=== PATIENT | female | born 1975 | race Caucasian/White ===

== ENCOUNTER 2018-08-15 18:19 | Observation (INO) | payer MEDICAID, SELFPAY ==
[2018-08-15] MEDS ORDERED: Sodium Chloride 0.9% 500 ML IV STA (19:14)
[2018-08-15] MEDS ORDERED: Albuterol 0.083% Inhal Sol (2.5 mg/3 mL) UD IH STA (19:15)
[2018-08-15 20:03] LABS: BASO # 0.01 K/mm3 (0.0-2.0); BASO % 0.1 % (0.0-3.0); EOS # 0.2 (0.0-0.7); EOS % 2.8 % (1.5-5.0); GRAN # 5.65 (1.4-6.5); LYMPH # 1.6 (1.2-3.4); LYMPH % 19.8 % (22.0-35.0); MEAN CELL VOLUME 86.7 fl (80.0-105.0); MEAN CORPUSCULAR HEMOGLOBIN 29.6 pg (25.0-35.0); MEAN CORPUSCULAR HGB CONC 34.2 g/dl (31.0-37.0); MEAN PLATELET VOLUME 8.7 fl (7.0-11.0); MONO # 0.7 (0.1-0.6); MONO % 8.3 % (1.0-6.0); RBC 5.4 10^6/uL (3.5-6.1); RED CELL DISTRIBUTION WIDTH 12.6 % (11.5-14.5); WHITE BLOOD COUNT 8.2 10^3/uL (4.5-11.0)
[2018-08-15 20:05] LABS: ALBUMIN 4.4 g/dL (3.0-4.8); BLOOD UREA NITROGEN 20 mg/dL (7-21); GFR NON-AFRICAN AMERICAN > 60
[2018-08-15 20:27] LABS: ALT/SGPT 30 U/L (7-56); AST/SGOT 41 U/L (14-36)
--- NOTE | 2018-08-15 21:46 | ED PDOC ---
Arrival/HPI - General Historian: Patient - History of Present Illness Narrative History of Present Illness (Text): Haroon Brito is a 42 year old female who presents to the ED complaining of cough, nasal congestion, and sore throat which started yesterday. Patient states she feels like she is having trouble breathing and notes she had a similar event happen last year around the same time. Patient denies any chest pain. Patient also complaining of fever at home, states she took spxa-efi-mxwjewx cold and cough medicine. Patient also complaining of headache, but denies any taking any medication for pain. Patient also denies nay nausea, vomiting, diarrhea, dizziness, extremity pain, or any other complaints. Symptom Onset: Gradual Symptom Course: Unchanged Activities at Onset: Light Context: Home <Sanjuanita Joshi - Last Filed: 08/16/18 02:10> <Beka Anaya - Last Filed: 08/17/18 17:43> - General Chief Complaint: Flu-like Symptoms Time Seen by Provider: 08/15/18 18:49 Past Medical History - Provider Review Nursing Documentation Reviewed: Yes - Travel History Have you recently traveled outside [place] w/in the past 3 mons?: No - Infectious Disease Hx of Infectious Diseases: None - Psychiatric Hx Substance Use: No - Anesthesia Hx Anesthesia: No <Sanjuanita Joshi - Last Filed: 08/16/18 02:10> Family/Social History - Physician Review Nursing Documentation Reviewed: Yes Family/Social History: Unknown Family HX Smoking Status: Never Smoked Hx Alcohol Use: No Hx Substance Use: No <Sanjuanita Joshi - Last Filed: 08/16/18 02:10> Allergies/Home Meds <Sanjuanita Joshi - Last Filed: 08/16/18 02:10> <Beka Anaya - Last Filed: 08/17/18 17:43> Allergies/Adverse Reactions: Allergies No Known Allergies Allergy (Verified 08/15/18 19:13) Review of Systems - Physician Review All systems were reviewed & negative as marked: Yes - Review of Systems Constitutional: Fevers. absent: Fatigue ENT: Sore Throat, Sinus Congestion, Other Respiratory: SOB, Cough. absent: Wheezing Cardiovascular: absent: Chest Pain, Palpitations Gastrointestinal: absent: Abdominal Pain, Diarrhea, Nausea, Vomiting Genitourinary Female: absent: Dysuria, Frequency Musculoskeletal: absent: Arthralgias, Back Pain Skin: absent: Rash Neurological: Headache. absent: Dizziness Psychiatric: absent: Anxiety, Depression <Sanjuanita Joshi T - Last Filed: 08/16/18 02:10> Physical Exam Vital Signs Reviewed: Yes Vital Signs Temp Pulse Resp BP Pulse Ox 08/15/18 21:25 99.7 F H 111 H 20 145/89 95 08/15/18 18:19 99.8 F H 122 H 20 131/82 95 Temperature: Febrile Blood Pressure: Normal Pulse: Tachycardic Respiratory Rate: Normal Appearance: Positive for: Well-Appearing, Non-Toxic, Comfortable Pain Distress: None Mental Status: Positive for: Alert and Oriented X 3 - Systems Exam Head: Present: Atraumatic, Normocephalic Conjunctiva: Present: Normal Ears: Present: Other (TMS obstructed by cerumen bilaterally) Mouth: Present: Moist Mucous Membranes Pharnyx: Present: Other (Post-nasal drip noted). No: ERYTHEMA, EXUDATE, TONSILS ENLARGED, Peritonsilar Swelling, Uvular Deviation, Muffled/Hoarse Voice, Strider, Soft Palate/Uvular Edema Nose (External): Present: Atraumatic Nose (Internal): Present: Normal Inspection Neck: Present: Normal Range of Motion. No: Meningeal Signs, MIDLINE TENDERNESS, Paraspinal Tenderness Respiratory/Chest: Present: Clear to Auscultation, Good Air Exchange. No: Respiratory Distress, Accessory Muscle Use, Wheezes, Decreased Breath Sounds, Retracting, Rhonchi, Tachypneic, Tender to Palpation Cardiovascular: Present: Regular Rate and Rhythm, Normal S1, S2. No: Murmurs Abdomen: No: Tenderness, Distention, Peritoneal Signs Back: Present: Normal Inspection Upper Extremity: Present: Normal Inspection. No: Cyanosis, Edema Lower Extremity: Present: Normal Inspection. No: Edema Neurological: Present: GCS=15, Speech Normal Skin: Present: Warm, Dry, Normal Color. No: Rashes Psychiatric: Present: Alert, Oriented x 3 <Sanjuanita Joshi T - Last Filed: 08/16/18 02:10> Vital Signs Temp Pulse Resp BP Pulse Ox 08/15/18 21:25 99.7 F H 111 H 20 145/89 95 08/15/18 20:29 99.7 F H 11/19/18 18:19 99.8 F H 122 H 20 131/82 95 <Beka Anaya - Last Filed: 08/17/18 17:43> Medical Decision Making ED Course and Treatment: Impression: 42 year old female complaining of fever, cough, nasal congestion, sore throat, and headache. Plan: -- Chest X-ray -- Labs, rapid influenza -- Tylenol -- Albuterol -- IV fluids -- Reassess and disposition Progress Notes: Patient was given Tylenol albuterol and IV fluids Chest x-ray shows no infiltrate or effusion. CBC within normal limits CMP within normal limits patient reassessment: lungs are clear to auscultation bilaterally patient is feeling better. Patient remains tachycardic and hypoxic. pt given toradol IV and 1L NS iv bolus added. CT Angio chest; COMMENTS: There is a dense left lower lobe consolidation consistent with pneumonia. Pulmonary edema is seen. There is bright opacification of the aorta and pulmonary arterial structures. The aorta is normal caliber and there is no dissection of the intima. No defect is seen in the pulmonary arteries to suggest pulmonary embolus. The lungs are fully expanded and there is no consolidation or mass. Heart is jxwjxnjnsf-zr-pqlsxhxw enlarged. There are pulmonary venous congestive changes present. There are no enlarged mediastinal or hilar lymph nodes. Small hiatal hernia is seen. The visualized portions of the liver are of uniform attenuation without mass or defect. There is no intra or extrahepatic biliary ductal dilatation. The spleen is unremarkable. The visualized pancreas is of normal contour and attenuation characteristics. There is no evidence of adrenal mass. The visualized portions of the kidneys present no abnormalities. There is a 2.4 x 1.5 cm right adrenal mass present containing fatty elements as well as calcifications and low-attenuation soft tissue component. This is consistent with right adrenal myelolipoma, a benign lesion. The bony structures appear intact. IMPRESSION: 1. No evidence of pulmonary embolism. 2. Dense left lower lobe consolidation consistent with pneumonia. 3. Pulmonary edema. 4. Cfvszmowwu-fg-xnlilalh enlarged heart with pulmonary venous congestive changes present. 5. Small hiatal hernia. blood cultures pending pt started on rocephin and zithromax IV. pt reassessment; pt remains slightly hypoxic. tachycardia has improved. case discussedwith Dr. huertas; excepts observational status admission to remote telemetry for pneumonia and hypoxia tachycardia cardiomegaly all results were discussed in depth with the patient. impression: Pneumonia, hypoxia, tachycardia, cardiomegaly Admit remote telemetry - Lab Interpretations Lab Results: 08/15/18 19:52 08/15/18 19:52 Lab Results 08/15/18 19:55: Influenza Typ A,B (EIA) Negative for flu a/b 08/15/18 19:52: WBC 8.2, RBC 5.40, Hgb 16.0, Hct 46.8, MCV 86.7, MCH 29.6, MCHC 34.2, RDW 12.6, Plt Count 255, MPV 8.7, Gran % 69.0 H, Lymph % (Auto) 19.8 L, [place] % (Auto) 8.3 H, Eos % (Auto) 2.8, Baso % (Auto) 0.1, Gran # 5.65, Lymph # (Auto) 1.6, [place] # (Auto) 0.7 H, Eos # (Auto) 0.2, Baso # (Auto) 0.01 08/15/18 19:52: Sodium 139, Potassium 4.4, Chloride 103, Carbon Dioxide 25, Anion Gap 16, BUN 20, Creatinine 0.9, Est GFR ( Amer) > 60, Est GFR (Non- Af Amer) > 60, Random Glucose 122 H, Calcium 9.0, Total Bilirubin 0.9, AST 41 H, ALT 30, Alkaline Phosphatase 93, Total Protein 8.8 H, Albumin 4.4, Globulin 4.4, Albumin/Globulin Ratio 1.0 L - RAD Interpretation Radiology Orders: 08/15/18 19:14 CHEST TWO VIEWS (PA/LAT) [RAD] Stat - Medication Orders Current Medication Orders: Discontinued Medications Acetaminophen (Tylenol 325mg Tab) 975 mg PO STAT STA Stop: 08/15/18 19:15 Last Admin: 08/15/18 19:29 Dose: 975 mg Albuterol Sulfate (Albuterol 0.083% Inhal Olive (2.5 Mg/3 Ml) Ud) 2.5 mg IH STAT STA Stop: 08/15/18 19:16 Last Admin: 08/15/18 19:29 Dose: 2.5 mg Sodium Chloride (Sodium Chloride 0.9%) 500 mls @ 999 mls/hr IV .Q31M STA Stop: 08/15/18 19:44 Last Admin: 08/15/18 19:29 Dose: 999 mls/hr eMAR Start Stop Document 08/15/18 19:29 OCS (Rec: 08/15/18 19:29 OCS [id number]) Intravenous Solution Start Date 08/15/18 Start Time 19:29 End Date 08/15/18 End time 19:59 Total Infusion Time 30 <Sanjuanita Joshi - Last Filed: 08/16/18 02:10> - Lab Interpretations Lab Results: 08/15/18 19:52 08/15/18 19:52 Lab Results 08/15/18 19:55: Influenza Typ A,B (EIA) Negative for flu a/b 08/15/18 19:52: WBC 8.2, RBC 5.40, Hgb 16.0, Hct 46.8, MCV 86.7, MCH 29.6, MCHC 34.2, RDW 12.6, Plt Count 255, MPV 8.7, Gran % 69.0 H, Lymph % (Auto) 19.8 L, [place] % (Auto) 8.3 H, Eos % (Auto) 2.8, Baso % (Auto) 0.1, Gran # 5.65, Lymph # (Auto) 1.6, [place] # (Auto) 0.7 H, Eos # (Auto) 0.2, Baso # (Auto) 0.01 08/15/18 19:52: Sodium 139, Potassium 4.4, Chloride 103, Carbon Dioxide 25, Anion Gap 16, BUN 20, Creatinine 0.9, Est GFR ( Amer) > 60, Est GFR (Non- Af Amer) > 60, Random Glucose 122 H, Calcium 9.0, Total Bilirubin 0.9, AST 41 H, ALT 30, Alkaline Phosphatase 93, Total Protein 8.8 H, Albumin 4.4, Globulin 4.4, Albumin/Globulin Ratio 1.0 L - RAD Interpretation Radiology Orders: 08/15/18 19:14 CHEST TWO VIEWS (PA/LAT) [RAD] Stat 08/15/18 22:04 ANGIO CHEST PE PROTOCOL [CT] Stat - Medication Orders Current Medication Orders: Discontinued Medications Acetaminophen (Tylenol 325mg Tab) 975 mg PO STAT STA Stop: 08/15/18 19:15 Last Admin: 08/15/18 19:29 Dose: 975 mg Re-Assess: MAR Pain/Vitals Document 08/15/18 20:29 OCS (Rec: 08/15/18 22:46 OCS [id number]) Vitals Temperature (97.6 F-99.6 F) 99.7 F Temperature Source Oral Albuterol Sulfate (Albuterol 0.083% Inhal Olive (2.5 Mg/3 Ml) Ud) 2.5 mg IH STAT STA Stop: 08/15/18 19:16 Last Admin: 08/15/18 19:29 Dose: 2.5 mg Sodium Chloride (Sodium Chloride 0.9%) 500 mls @ 999 mls/hr IV .Q31M STA Stop: 08/15/18 19:44 Last Admin: 08/15/18 19:29 Dose: 999 mls/hr eMAR Start Stop Document 08/15/18 19:29 OCS (Rec: 08/15/18 19:29 OCS [id number]) Intravenous Solution Start Date 08/15/18 Start Time 19:29 End Date 08/15/18 End time 19:59 Total Infusion Time 30 Sodium Chloride (Sodium Chloride 0.9%) 1,000 mls @ 999 mls/hr IV .Q1H1M STA Stop: 08/15/18 23:02 Last Admin: 08/15/18 22:37 Dose: 999 mls/hr eMAR Start Stop Document 08/15/18 22:37 OCS (Rec: 08/15/18 22:38 OCS [id number]) Intravenous Solution Start Date 08/15/18 Start Time 22:37 End Date 08/15/18 End time 23:38 Total Infusion Time 61 Ketorolac Tromethamine (Toradol) 30 mg IVP STAT STA Stop: 08/15/18 22:03 Last Admin: 08/15/18 22:38 Dose: 30 mg MAR Pain Assessment Document 08/15/18 22:38 OCS (Rec: 08/15/18 22:38 [id number] Pain Reassessment Is this a pain reassessment? Yes Sleep Is patient sleeping during reassessment? No Presence of Pain Presence of Pain Yes Pain Scale Used Protocol: PSCALES Pain Scale Used Numeric Location Pain Location Body Site Generalized Description Description Constant Aggravating Factors ADL's IVP Administration Document 08/15/18 22:38 OCS (Rec: 08/15/18 22:38 [facility] [id number]) Charges for Administration # of IVP Administrations 1 <Beka Anaya - Last Filed: 08/17/18 17:43> - Scribe Statement The provider has reviewed the documentation as recorded by the Scribe Raissa Rivera Provider Scribe Attestation: All medical record entries made by the Scribe were at my direction and personally dictated by me. I have reviewed the chart and agree that the record accurately reflects my personal performance of the history, physical exam, medical decision making, and the department course for this patient. I have also personally directed, reviewed, and agree with the discharge instructions and disposition. <Sanjuanita Joshi - Last Filed: 08/16/18 02:10> - PA / LEAD PROGRAMMER / Resident Statement / has reviewed & agrees with the documentation as recorded. / has examined the patient and agrees with the treatment plan. <Beka Anaya - Last Filed: 08/17/18 17:43> Disposition/Present on Arrival - Present on Arrival Any Indicators Present on Arrival: No History of DVT/PE: No History of Uncontrolled Diabetes: No Urinary Catheter: No History of Decub. Ulcer: No History Surgical Site Infection Following: None - Disposition Have Diagnosis and Disposition been Completed?: Yes Disposition Time: 00:01 Patient Plan: Observation <Sanjuanita Joshi - Last Filed: 08/16/18 02:10> <Beka Anaya - Last Filed: 08/17/18 17:43> - Disposition Diagnosis: Pneumonia, Tachycardia, Hypoxia, Cardiomegaly Disposition: HOSPITALIZED Condition: FAIR
[2018-08-15] MEDS ORDERED: Sodium Chloride 0.9% 1,000 ML IV STA (22:02)
[2018-08-15] MEDS ORDERED: Iohexol 350 MG/100 ML VIAL ONE (22:22)
[2018-08-16] MEDS ORDERED: cefTRIAXone 1 gm 1 GM/100 ML BAG IVPB STA (00:07)
[2018-08-16] MEDS ORDERED: Azithromycin 500MG/NS 250ml 500 MG/250 ML BAG IVPB STA (00:07)
[2018-08-16 01:00] VITALS: BMI 37.6
--- NOTE | 2018-08-16 01:37 | CP.PCM.HP ---
History of Present Illness - History of Present Illness History of Present Illness: Patrick Rocha PGY-1 Medicine H&P Note for Dr. Lien Riggins: CC: Cough Pt is a 42 yo F with no significant pmhx who presents to the ED for cough, SOB and a sore throat. She states that this all started yesterday afternoon and she has attempted to take OTC cold and flu medications for relief. She states that she has been getting relief from the cold and flu medication. She states that she has been feeling feverish at home but when she checks her temperature with a thermometer it is only .5 degrees higher than normal. She admits to having a sick contact at home and states that he is feeling much better now. She reports that her cough is non-productive, and that she only gets SOB after she coughs but then resolves by itself without any intervention. She also states that her sore throat is due to her coughing, she denies difficulty or pain with speech or swallowing. She reports that she has been feeling much better since being in the ED. She admits to subjective fever, dry cough, SOB and a sore throat 2/2 coughing and denies headache, weakness, chest pain, palpitations, wheezing, abd pain, n/v, c/d, dysuria or hematuria. Pmhx: Denies Pshx: Denies Meds: Denies All: NKDA Social: Denies any tobacco use ever, etoh or illicit drug use Fam Hx: Non-contributory PMD: None Pharm: None Present on Admission - Present on Admission Any Indicators Present on Admission: No Review of Systems - Review of Systems All systems: reviewed and no additional remarkable complaints except Review of Systems: 12 point ROS has been reviewed and is negative except for whats noted in HPI Past Patient History - Infectious Disease Hx of Infectious Diseases: None - Past Social History Smoking Status: Never Smoked - PSYCHIATRIC Hx Substance Use: No - ANESTHESIA Hx Anesthesia: No Meds Allergies/Adverse Reactions: Allergies Allergy/AdvReac Type Severity Reaction Status Date / Time No Known Allergies Allergy Verified 08/15/18 19:13 Physical Exam - Constitutional Appears: Well, Non-toxic, No Acute Distress - Head Exam Head Exam: ATRAUMATIC, NORMAL INSPECTION, NORMOCEPHALIC - Eye Exam Eye Exam: EOMI, Normal appearance, PERRL - ENT Exam ENT Exam: Normal Exam, Normal Oropharynx (no tonsilar swelling, erythema or exudate noted) - Neck Exam Neck exam: Negative for: Lymphadenopathy, Meningismus, Tenderness - Respiratory Exam Respiratory Exam: Clear to Auscultation Bilateral, NORMAL BREATHING PATTERN. absent: Accessory Muscle Use, Decreased Breath Sounds, Rales, Rhonchi, Wheezes, Respiratory Distress - Cardiovascular Exam Cardiovascular Exam: Tachycardia, REGULAR RHYTHM, +S1, +S2. absent: Gallop, Rubs, Systolic Murmur - GI/Abdominal Exam GI & Abdominal Exam: Normal Bowel Sounds, Soft. absent: Firm, Guarding, Tenderness - Extremities Exam Extremities exam: Positive for: normal capillary refill, normal inspection, pedal pulses present - Back Exam Back exam: NORMAL INSPECTION. absent: CVA tenderness (L), CVA tenderness (R) - Neurological Exam Neurological exam: Alert, Oriented x3 - Psychiatric Exam Psychiatric exam: Normal Affect, Normal Mood - Skin Skin Exam: Dry, Intact, Normal Color, Warm Results - Vital Signs Recent Vital Signs: Last Vital Signs Temp 99.7 F H 08/15/18 21:25 Pulse 111 H 08/15/18 21:25 Resp 20 08/15/18 21:25 BP 145/89 08/15/18 21:25 Pulse Ox 95 08/15/18 21:25 - Labs Result Diagrams: 08/15/18 19:52 08/15/18 19:52 Labs: Laboratory Results - last 24 hr 08/15/18 08/15/18 08/15/18 19:52 19:52 19:55 WBC 8.2 RBC 5.40 Hgb 16.0 Hct 46.8 MCV 86.7 MCH 29.6 MCHC 34.2 RDW 12.6 Plt Count 255 MPV 8.7 Gran % 69.0 H Lymph % (Auto) 19.8 L [place] % (Auto) 8.3 H Eos % (Auto) 2.8 Baso % (Auto) 0.1 Gran # 5.65 Lymph # (Auto) 1.6 [place] # (Auto) 0.7 H Eos # (Auto) 0.2 Baso # (Auto) 0.01 Sodium 139 Potassium 4.4 Chloride 103 Carbon Dioxide 25 Anion Gap 16 BUN 20 Creatinine 0.9 Est GFR ( Amer) > 60 Est GFR (Non-Af Amer) > 60 Random Glucose 122 H Calcium 9.0 Total Bilirubin 0.9 AST 41 H ALT 30 Alkaline Phosphatase 93 Total Protein 8.8 H Albumin 4.4 Globulin 4.4 Albumin/Globulin Ratio 1.0 L Influenza Typ A,B (EIA) Negative for flu a/b Assessment & Plan - Assessment and Plan (Free Text) Assessment: Pt is a 42 yo F with no significant pmhx who presents to the ED for cough, SOB and a sore throat. Pt is noted to be afebrile in ED, and no elevation in WBC count on labs. CXR showed no acute disease as read by me. CTA done in ED showed LLL consolidation. Plan: 1. PNA: - Pt is noted to have a LLL consolidation on CTA done in ED with no evidence of PE - Started on rocephin 1g and zithromax 500 - ABG - f/u mycoplasma and legionella 2. PPX: DVT: SCDs
[2018-08-16] MEDS ORDERED: Sodium Chloride 0.9% 1,000 ML IV SCH (01:45)
[2018-08-16 02:20] LABS: TROPONIN I < 0.01 ng/mL
[2018-08-16 02:35] LABS: CK-MB 2.2 ng/mL (0.0-3.6)
[2018-08-16 03:25] VITALS: RESP 19; TEMP 98.8; O2SAT 95
[2018-08-16 07:36] LABS: BASO # 0.01 K/mm3 (0.0-2.0); BASO % 0.2 % (0.0-3.0); EOS # 0.2 (0.0-0.7); EOS % 3.5 % (1.5-5.0); GRAN # 3.27 (1.4-6.5); GRAN % 60.2 % (50.0-68.0); HEMOGLOBIN 14.5 g/dL (12.0-16.0); LYMPH # 1.4 (1.2-3.4); LYMPH % 25.4 % (22.0-35.0); MEAN CELL VOLUME 86.7 fl (80.0-105.0); MEAN CORPUSCULAR HEMOGLOBIN 29.2 pg (25.0-35.0); MEAN CORPUSCULAR HGB CONC 33.6 g/dl (31.0-37.0); MEAN PLATELET VOLUME 8.8 fl (7.0-11.0); MONO # 0.6 (0.1-0.6); MONO % 10.7 % (1.0-6.0); RBC 4.97 10^6/uL (3.5-6.1); RED CELL DISTRIBUTION WIDTH 12.6 % (11.5-14.5); WHITE BLOOD COUNT 5.4 10^3/uL (4.5-11.0)
[2018-08-16 07:47] LABS: GFR NON-AFRICAN AMERICAN > 60
[2018-08-16] MEDS ORDERED: Albuterol-Ipratrop 3 mg / 0.5 (3 ml) UD IH PRN (07:47)
[2018-08-16] MEDS ORDERED: guaiFENesin-DM 600-30 mg ER Tab PO PRN (07:47)
[2018-08-16 07:48] LABS: ALBUMIN 3.7 g/dL (3.0-4.8)
[2018-08-16 07:49] LABS: ALT/SGPT 30 U/L (7-56); AST/SGOT 31 U/L (14-36); BLOOD UREA NITROGEN 19 mg/dL (7-21); CALCIUM 8.1 mg/dL (8.4-10.5)
[2018-08-16] MEDS ORDERED: Potassium Chloride 20 mEq ER Tab PO STA (08:07)
[2018-08-16 08:31] VITALS: BP 134/86; PULSE 90
--- NOTE | 2018-08-16 09:11 | CT ---
Date of service: 08/15/2018 PROCEDURE: CT Chest with contrast (Pulmonary Angiogram) HISTORY: SOB COMPARISON: None available. TECHNIQUE: Axial computed tomography images were obtained of the chest in the pulmonary arterial phase of enhancement. Coronal and sagittal reformatted images were created and reviewed. Intravenous contrast dose: 100 cc of Omni 350 Radiation dose: Total exam DLP = 505.5 mGy-cm. This CT exam was performed using one or more of the following dose reduction techniques: Automated exposure control, adjustment of the mA and/or kV according to patient size, and/or use of iterative reconstruction technique. FINDINGS: PULMONARY ARTERIES: No evidence of pulmonary embolus AORTA: No acute findings. No thoracic aortic aneurysm. No aortic atherosclerotic calcification or mural plaque present. LUNGS: There is a focal area of consolidation in the left lower lobe suspicious for pneumonia PLEURAL SPACES: Unremarkable. No effusion or pneumothorax. HEART: Cardiomegaly with vascular congestion LYMPH NODES: No lymphadenopathy. BONES, CHEST WALL: Unremarkable. No fracture or destructive lesion there is a partially calcified fatty density lesion in the right adrenal gland consistent with a myelo lipoma. OTHER FINDINGS: The report concurs with the preliminary [facility] report IMPRESSION: Unremarkable CT pulmonary angiogram. No pulmonary embolus. Left lower lobe consolidation consistent with pneumonia
[2018-08-16] MEDS: Albuterol-Ipratrop 3 mg / 0.5 (3 ml) UD IH SCH ×2 (09:21→13:17)
--- NOTE | 2018-08-16 09:28 | RAD ---
Date of service: 08/15/2018 HISTORY: cough/fever COMPARISON: No prior. TECHNIQUE: Chest PA and lateral FINDINGS: LUNGS: Diminished pulmonary volume appreciated. Crowding of the bronchovascular markings is identified at the bases. No definite alveolitis bilaterally. PLEURA: No significant pleural effusion identified. No pneumothorax apparent. CARDIOVASCULAR: No aortic atherosclerotic calcification present. Normal cardiac size. No pulmonary vascular congestion. OSSEOUS STRUCTURES: No significant abnormalities. VISUALIZED UPPER ABDOMEN: Normal. OTHER FINDINGS: None. IMPRESSION: Diminished history volume. No definitive infiltrate or cardiovascular changes appreciated at this time.
--- NOTE | 2018-08-16 09:51 | CARD ---
APPROVED REPORT Date of service: 08/16/2018 EKG Measurement Heart [id number] <Conclusion> Normal sinus rhythm Moderate voltage criteria for LVH, may be normal variant
[2018-08-16] MEDS ORDERED: cefTRIAXone 1 gm 1 GM/100 ML BAG IVPB SCH ×2 (10:00→14:00)
[2018-08-16] MEDS ORDERED: Azithromycin 500MG/NS 250ml 500 MG/250 ML BAG IVPB SCH ×2 (13:00→14:00)
--- NOTE | 2018-08-16 14:37 | CP.PCM.DIS ---
Provider - Provider Date of Admission: 08/16/18 00:14 Attending physician: Dre Naav MD Primary care physician: NO FAMILY PROVIDER Consults: None Time Spent in preparation of Discharge (in minutes): 35 Diagnosis - Discharge Diagnosis (1) Pneumonia Status: Acute Hospital Course - Lab Results Lab Results: Most Recent Lab Values WBC 5.4 10^3/uL (4.5-11.0) D 08/16/18 07:15 RBC 4.97 10^6/uL (3.5-6.1) 08/16/18 07:15 Hgb 14.5 g/dL (12.0-16.0) 08/16/18 07:15 Hct 43.1 % (36.0-48.0) 08/16/18 07:15 MCV 86.7 fl (80.0-105.0) 08/16/18 07:15 MCH 29.2 pg (25.0-35.0) 08/16/18 07:15 MCHC 33.6 g/dl (31.0-37.0) 08/16/18 07:15 RDW 12.6 % (11.5-14.5) 08/16/18 07:15 Plt Count 218 10^3/uL (120.0-450.0) 08/16/18 07:15 MPV 8.8 fl (7.0-11.0) 08/16/18 07:15 Gran % 60.2 % (50.0-68.0) 08/16/18 07:15 Lymph % (Auto) 25.4 % (22.0-35.0) 08/16/18 07:15 [place] % (Auto) 10.7 % (1.0-6.0) H 08/16/18 07:15 Eos % (Auto) 3.5 % (1.5-5.0) 08/16/18 07:15 Baso % (Auto) 0.2 % (0.0-3.0) 08/16/18 07:15 Gran # 3.27 (1.4-6.5) 08/16/18 07:15 Lymph # (Auto) 1.4 (1.2-3.4) 08/16/18 07:15 [place] # (Auto) 0.6 (0.1-0.6) 08/16/18 07:15 Eos # (Auto) 0.2 (0.0-0.7) 08/16/18 07:15 Baso # (Auto) 0.01 K/mm3 (0.0-2.0) 08/16/18 07:15 Sodium 139 mmol/L (132-148) 08/16/18 07:15 Potassium 3.4 mmol/L (3.6-5.0) L 08/16/18 07:15 Chloride 105 mmol/L (98-107) 08/16/18 07:15 Carbon Dioxide 26 mmol/L (21-33) 08/16/18 07:15 Anion Gap 11 (10-20) 08/16/18 07:15 BUN 19 mg/dL (7-21) 08/16/18 07:15 Creatinine 0.7 mg/dl (0.7-1.2) 08/16/18 07:15 Est GFR ( Amer) > 60 08/16/18 07:15 Est GFR (Non-Af Amer) > 60 08/16/18 07:15 Random Glucose 120 mg/dL (70-110) H 08/16/18 07:15 Calcium 8.1 mg/dL (8.4-10.5) L 08/16/18 07:15 Total Bilirubin 0.6 mg/dL (0.2-1.3) 08/16/18 07:15 AST 31 U/L (14-36) 08/16/18 07:15 ALT 30 U/L (7-56) 08/16/18 07:15 Alkaline Phosphatase 79 U/L (38-126) 08/16/18 07:15 Lactate Dehydrogenase 422 U/L (333-699) 08/16/18 01:25 Total Creatine Kinase 488 U/L (35-230) H 08/16/18 01:25 CK-MB (CK-2) 2.2 ng/mL (0.0-3.6) 08/16/18 01:25 CK-MB (CK-2) % Cancelled 08/16/18 01:25 Troponin I < 0.01 ng/mL 08/16/18 01:25 NT-Pro-B Natriuret Pep 27.7 pg/mL (0-450) 08/16/18 07:00 Total Protein 7.5 g/dL (5.8-8.3) 08/16/18 07:15 Albumin 3.7 g/dL (3.0-4.8) 08/16/18 07:15 Globulin 3.8 gm/dL 08/16/18 07:15 Albumin/Globulin Ratio 1.0 (1.1-1.8) L 08/16/18 07:15 Influenza Typ A,B (EIA) Negative for flu a/b (NEGATIVE) 08/15/18 19:55 Mycoplasma pneumon IgM Negative (NEGATIVE) 08/16/18 06:00 - Hospital Course Hospital Course: Stephen Cesardevyn, PGY-1 Discharge Summary for Hospitalist Service Upon admission: Patient is a 42 year old female with no significant pmhx who presented to the ED for cough, shortness of breath and a sore throat. Patient stated that her symptoms began afternoon of 08/14. She indicated that she attempted to take her child's OTC cold and flu medications for relief. She stated that she experienced only minimal relief from the cold and flu medication. She reported feeling a subjective fever at home but she has been afebrile when she checked using a thermometer. She admitted to having a sick contact at home (14 year old son) and stated that he is feeling much better now. She reported that her cough is dry non-productive, and that she only experiences shortness of breath after coughing with resolution shortly afterward. She also stated that her sore throat is due to her coughing, she denies difficulty or pain with speech or swallowing. She also stated that she was experiencing some post nasal drip. Patient denies headache, weakness, chest pain, palpitations, wheezing, abdominal pain, nausea, vomiting, diarrhea, constipation, dysuria or hematuria. Hospital Course: 42 year old female admitted for shortness of breath, cough and sore throat. CXR was obtained to evaluate for possible pneumonia. CT angio was obtained to rule out pulmonary embolism. CXR was reported to have no definitive infiltrate or cardiovascular changes at time of exam. CT angio was reported to show left lower lobe consolidation consistent with pneumonia and no pulmonary embolus. The patient was started on Rocephin 1 gm, Zithromax 500 mg, Duonebs, and Guaifenesin. Serology for Influenza Type A,B and Mycoplasma IgM were found to be negative. Discharge plan: Patient is stable for discharge to home as per Dr. Leahy. Patient was counseled to return to the emergency department if symptoms return or worsen. Patient is to follow up with [facility] on 08/19. Patient is to complete 7 day antibiotic course for management of pneumonia as prescribed and instructed. Patient was given a prescription for azithromycin 500 mg once daily, and cefuroxime 500 mg twice daily. Patient sent home with Mucinex-DM and Claritin 10 mg as needed. Counseled patient on the side effects of medications. Reviewed all medications with patient, and she understands instructions. Patient understands and agrees with discharge plan. Disclaimer: Written above is a synopsis of patients current hospital admission. For full admission refer to EMR. Patient seen and case reviewed by Dr. Leahy. Discharge Exam - Additional Findings Additional findings: - Constitutional Appears: Well, Non-toxic, No Acute Distress - Head Exam Head Exam: ATRAUMATIC, NORMAL INSPECTION, NORMOCEPHALIC - Eye Exam Eye Exam: EOMI, Normal appearance, PERRL - ENT Exam ENT Exam: Normal Exam, Normal Oropharynx (no tonsilar swelling, erythema or exudate noted) - Neck Exam Neck exam: Negative for: Lymphadenopathy, Meningismus, Tenderness - Respiratory Exam Respiratory Exam: Clear to Auscultation Bilateral, NORMAL BREATHING PATTERN. absent: Accessory Muscle Use, Decreased Breath Sounds, Rales, Rhonchi, Wheezes, Respiratory Distress - Cardiovascular Exam Cardiovascular Exam: Tachycardia, REGULAR RHYTHM, +S1, +S2. absent: Gallop, Rubs, Systolic Murmur - GI/Abdominal Exam GI & Abdominal Exam: Normal Bowel Sounds, Soft. absent: Firm, Guarding, Tenderness - Extremities Exam Extremities exam: Positive for: normal capillary refill, normal inspection, pedal pulses present - Back Exam Back exam: NORMAL INSPECTION. absent: CVA tenderness (L), CVA tenderness (R) - Neurological Exam Neurological exam: Alert, Oriented x3 - Psychiatric Exam Psychiatric exam: Normal Affect, Normal Mood - Skin Skin Exam: Dry, Intact, Normal Color, Warm Discharge Plan - Discharge Medications Prescriptions: Albuterol Sulfate [Ventolin Hfa] 1 puff IH Q6 #1 ml Azithromycin 500 mg PO DAILY #6 tablet Cefuroxime Axetil [Cefuroxime] 500 mg PO BID #12 tablet guaiFENesin/Dextromethorphan [Mucinex-DM 600-30 mg] 1 tab PO BID PRN #30 tab PRN Reason: Cough Loratadine [Claritin] 10 mg PO DAILY #30 tab - Follow Up Plan Condition: FAIR Disposition: HOME/ ROUTINE Instructions: Pneumonia, Adult (DC), Community-Acquired Pneumonia in Adults Additional Instructions: Please take your Cefuroxime beginning tonight and Azithromycin beginning tomorrow. Please complete those medications as prescribed. Please take over the counter Claritin and Mucinex as needed for allergies. Please use your inhaler as needed. Please follow up in [facility] on [facility] floor [facility] on 08/19 at 3:30 PM. Please arrive by 3:30 pm with photo ID. Patient strongly urged to follow up for any worsening shortness of breath or weakness. Should symptoms worsen or reoccur, please return to nearest emergency department. Referrals: FAMILY PROVIDER,NO [Primary Care Provider] -
== END 2018-08-16 16:46 | disposition home or self-care (01) ==
LOC: ED 18:19 → ERH 08-16 00:14 → 3RSO 08-16 01:57
PROVIDERS: ADMIT Internal Medicine; ATTEND Internal Medicine
DX: J18.9 Pneumonia, unspecified organism (principal)
CPT/HCPCS: 36415; 71046; 71275; 80053; 82550; 82553; 83615; 83880; 84484; 85025; 86738; 87040; 87804; 93005; 94640; 96361; 96365; 96367; 96372; 96375; 96376; 99285; G0378; J0456; J0696; J1644; J1885; J7030; J7040; Q9967